=== PATIENT | male | born 1975 | race African-American/Black ===

== ENCOUNTER 2021-03-04 10:19 | Outpatient (CLI) | payer MEDICARE, MEDICAID | END 2021-03-04 10:20 | disposition home or self-care (01) | LOC: BICULT 10:19 | PROVIDERS: ATTEND Internal Medicine Gastroenterology | DX: B19.10 Unspecified viral hepatitis B without hepatic coma (principal); K76.0 Fatty (change of) liver, not elsewhere classified | CPT/HCPCS: 76705 ==

== ENCOUNTER 2022-04-23 09:17 | Outpatient (CLI) | payer MEDICARE, MEDICAID | END 2022-04-23 09:18 | disposition home or self-care (01) | LOC: BICULT 09:17 | PROVIDERS: ATTEND Physician Assistant Medical | DX: B19.10 Unspecified viral hepatitis B without hepatic coma (principal); K76.0 Fatty (change of) liver, not elsewhere classified | CPT/HCPCS: 76705 ==

== ENCOUNTER 2024-01-27 10:38 | Outpatient (CLI) | payer MEDICARE, MEDICAID | END 2024-01-27 10:39 | disposition home or self-care (01) | LOC: BICULT 10:38 | PROVIDERS: ATTEND Physician Assistant Medical | DX: B19.10 Unspecified viral hepatitis B without hepatic coma (principal); R93.2 Abnormal findings on diagnostic imaging of liver and biliary tract | CPT/HCPCS: 76705 ==